=== PATIENT | female | born 1965 | race Caucasian/White ===

== ENCOUNTER 2016-11-17 13:30 | Emergency (ER) | payer OTHER ==
[~2016-11-17] VITALS: Ht 167.6 cm; Wt 56.8 kg
[2016-11-17 13:34] VITALS: BP 114/81; PULSE 101; RESP 20; O2SAT 97
[2016-11-17 14:04] LABS: BASOPHILS % (AUTO) 0.2 % (0-3); EOSINOPHILS % (AUTO) 2.2 % (0-5); MONOCYTES % (AUTO) 9.4 % (4-12); Mean Corpuscular Volume 83.5 fL (81-100); NEUTROPHILS % (AUTO) 76.3 % (40-74); Platelet Count 295 bil/L (150-400)
--- NOTE | 2016-11-17 14:19 | DRSVH ---
PROCEDURE: X-RAY CHEST, TWO VIEWS ([id number]) INDICATIONS: Fever, right-sided chest pain, and shortness of breath. TECHNIQUE: 2 views of the chest were acquired. COMPARISON: [facility], , CHEST 2VW, 11/02/2009, 14:11. FINDINGS: Surgical changes and devices: None. Lungs and pleura: No pleural effusions or pneumothorax. There are patchy bilateral indistinct groun d glass opacities, right greater than left. Mediastinum: Mediastinal contours are normal. Heart size is normal. Bones and chest wall: No suspicious bony abnormalities. Soft tissues appear unremarkable. IMPRESSION: 1. Patchy bilateral groundglass opacities suggestive of an atypical infection given clinical history . Recommend short-term followup to demonstrate resolution or further evaluation with CT. Dictated by: Grabiel Fonseca M.D. on 11/17/2016 at 14:16 Approved by: Grabiel Fonseca M.D. on 11/17/2016 at 14:17
--- NOTE | 2016-11-17 14:28 | ED.REPORT ---
HPI-URI / Cough / Cold Date of Service Nov 17, 2016 ED Provider: Alonso Shields PA-C Rona is a 51-year-old female presented with a chief complaint of fever. She reports a four-day history of fever as high as 103. Patient reports that "my normal temperature is 97.6 degrees so I add a degree when I take my temperature. Complains of cough, pain in her chest, as reduced exercise tolerance, fatigue, 5-10 # weight loss over the last 4 days. Reports that over the last 6 months been treated several times for bronchitis, pneumonia at other facilities. She does not believe that it is gone. She says she feels sometimes better for a few days and then the symptoms returned. Patient presents a log of temperature readings as well as food items consumed, medications taken. Review of hospital records indicates she was given a Z-Dean 10/05/2016 and previous to that a 10 day course of Bactrim DS and levofloxacin 750 mg starting 07/22/2016 Nursing Notes Stated Complaint: FEVER OF 100-1003 FOR 4 DAYS,CHEST PAIN Chief Complaint: General Complaint Nursing Notes Reviewed: Yes Allergies: Coded Allergies: Neomycin (Verified Allergy, 03/02/13) codeine (Verified Allergy, 03/02/13) Uncoded Allergies: PCN (Allergy, 03/02/13) General Time Seen by MD: 13:53 Chief Complaint Cough, productive... (Yellow) Past Medical History Past Medical History COPD Review of Systems General: Admits fever, chills, malaise. HEENT: Admits congestion, headache, sore throat. Respiratory: Admits dyspnea, cough, shortness of breath, wheezing. Cardiovascular: Denies chest pain, palpitations. Gastrointestinal: Denies vomiting, diarrhea, abdominal pain. Genitourinary: Denies frequency, urgency, dysuria, hematuria. Otherwise as noted in HPI. Physical Exam General: Well appearing, well developed, well nourished, no acute distress. Head: Atraumatic, normocephalic. Eyes: No scleral icterus or injection. No discharge. Vision grossly intact. ENT: Voice clear, hearing grossly intact. Respiratory: Clinically evident cough. Regular rate and rhythm. Breath sounds present and equal bilaterally. Mild wheezes in all avery. No respiratory distress. No increased work of breathing, speaks in complete sentences. Cardiovascular: Regular rate and rhythm, without murmur, gallop or rub. No pedal edema. Gastrointestinal: Abdomen flat and non-tender without guarding or rebound. Bowel sounds normoactive. Skin: Warm and dry. Neurological: Grossly nonfocal. Psychological: Alert and oriented. Speech appropriate, linear and logical. Behavior appropriate. Appears moderately anxious. Initial Vital Signs Vital Signs (First) Date Time Temp Pulse Resp B/P Pulse Ox O2 Delivery O2 Flow Rate FiO2 11/17/16 13:34 36.6 101 20 114/81 97 Room Air Mild tachycardia Interpretation & Diagnostics Interpretation & Diagnostics: PROCEDURE: CT ANGIO CHEST PULMONARY EMBOLISM ([id number]) INDICATIONS: 51 year-old female with lung abnormalities on recent chest radiograph. IMPRESSION: 1. No evidence for acute pulmonary embolism. 2. Evolving bilateral bronchopneumonia, on a background of centrilobular emphysema. Lab Results Interpretation Result Diagram: 11/17/16 1355 11/17/16 1355 Test 11/17/16 13:55 White Blood Count 13.9th/mm3 (3.8-10.1) Red Blood Count 4.85mil/mm3 (3.90-5.20) Hemoglobin 13.1g/dL (12.0-15.6) Hematocrit 40.5% (35.0-46.0) Mean Corpuscular Volume 83.5fL (81-100) Mean Corpuscular Hemoglobin 27.0pg (27.0-35.0) Mean Corpuscular Hemoglobin Concent 32.3% (32.0-37.0) Red Cell Distribution Width 12.1% (12.3-15.4) Platelet Count 295bil/L (150-400) Neutrophils (%) (Auto) 76.3% (40-74) Lymphocytes (%) (Auto) 11.5% (14-46) Monocytes (%) (Auto) 9.4% (4-12) Eosinophils (%) (Auto) 2.2% (0-5) Basophils (%) (Auto) 0.2% (0-3) Sodium Level 138mEq/L (134-144) Potassium Level 3.8mEq/L (3.5-5.2) Chloride Level 97mEq/L (97-108) Carbon Dioxide Level 24mmol/L (18-29) Blood Urea Nitrogen 9mg/dL (6-24) Creatinine 0.70mg/dL (0.57-1.00) Estimat Glomerular Filtration Rate 127mL/min (>59) Glucose Level 107mg/dL (60-99) Calcium Level 9.7mg/dL (8.5-10.1) Total Bilirubin 0.4mg/dL (0.0-1.2) Aspartate Amino Transf (AST/SGOT) 20U/L (0-50) Alanine Aminotransferase (ALT/SGPT) 24U/L (0-32) Alkaline Phosphatase 145U/L (25-150) C-Reactive Protein 14.0mg/dL (0.0-0.5) Total Protein 7.3g/dL (6.4-8.4) Albumin 3.9g/dL (3.4-5.0) Hold Castaneda Top Tube Received (Received) X-Ray Chest Interpretation Chest Xray Interpretation: PROCEDURE: X-RAY CHEST, TWO VIEWS ([id number]) INDICATIONS: Fever, right-sided chest pain, and shortness of breath. IMPRESSION: 1. Patchy bilateral groundglass opacities suggestive of an atypical infection given clinical history. Recommend short-term followup to demonstrate resolution or further evaluation with CT. View: AP & lat Interpretation / Wet Read by: Interpret - Radiologist Re-Eval/Medical Decision Med Decision/Clinical Course A 51-year-old woman with chief complaint of fever and cough. Reports several treatments for pneumonia over the last 6 months, always returning after a week or 2. Reports fever at home, weight loss over the last 4 days. Physical examination reveals a thin woman with wheezes in all avery, clinically evident, moderately anxious. Mildly tachycardic, afebrile. CBC reveals leukocytosis at 13.9. CMP is normal. Chest x-ray suggests possible pneumonia. Discussed these findings with Dr. Roberts, who consulted with radiology. Advised CT chest angiogram to further assess the parenchyma and rule out PE. CT is suggestive of bilateral bronchopneumonia on a background of central lobar emphysema. I discussed the case with Dr. Gann of infectious disease. He feels in light of her several treatments and recurring symptoms she needs to be assessed for an atypical pneumonia. He asked that she be referred to his clinic as well as pulmonology. He asks that additional blood testing be performed, which I accommodate. He does not believe that antibiotics should be prescribed at this time. I discussed this with the patient, she is disappointed to not receive treatment at this time and to have to wait to see Dr. Gann, however she consents to the plan. Provided emergency return precautions. Re-Evaluation/Progress : Re-Evaluation/Progress Note: Patient reports minimal improvement after treatment with albuterol nebulizer. Declines DuoNeb nebulizer. Re-examination reveals continuing mild wheezes in all avery. Consultation : Referral / Consult Name: Froylan Gann MD Call Returned at: 17:08 Note: Consulted with Froylan Gann, infectious disease. He recommends that she be seen in his clinic as well as pulmonary clinic. Request labs redrawn for cryptococcal antigen, Aspergillus antibody, CRP, and galacto shravan. He does not feel that it is appropriate to put her on more antibiotics at this time. Discharge & Departure Impression: Primary Impression: Pneumonia Pneumonia type: due to unspecified organism Laterality: unspecified laterality Lung location: unspecified part of lung Qualified Code: J18.9 - Pneumonia, unspecified organism Disposition: Home Discharge Condition All VS Reviewed: Yes Condition: Stable Additional Instructions: Evaluation in the emergency department for cough and fever includes history, physical examination, blood work, chest x-ray and CT scan of which suggest that this is because of a pneumonia. Because you have undergone several courses of treatment already, this is most likely atypical. I discussed the case with Dr. Gann, our infectious disease specialist. Do not feel we should put her on more antibiotics at this time rather he would prefer to see you in clinic to try to determine what is causing this. I have ordered some blood tests at his request. The results will be available to him at your appointment. He also requested that you be seen at the pulmonology clinic. I have provided you with a referral to each of these clinics. Please contact them tomorrow to arrange follow-up as soon as possible. Return to emergency department for any new or worsening symptoms including increasing shortness of breath. Referrals: Jayjay Magdaleno MD, Mark MD EDSupervising Provider for APC: Brooks Roberts MD Attending Statement I discussed this patient in detail with Mr. Shields. I interviewed the patient myself and examined her carefully myself. I have reviewed all of the laboratory data. I discussed the case in detail with radiology and we decided to go ahead with imaging CT imaging of the chest. Mr. Shields talked to Dr. Gann in detail and have established a plan that seems safe and appropriate to me. I agree with Mr. Shields's assessment plan and documentation otherwise. copies to: Jayjay Magdaleno MD; Froylan Gann MD, Seth PA-C Nov 17, 2016 14:28 Brooks Roberts MD Nov 17, 2016 17:41
[2016-11-17 14:44] VITALS: BP 126/69; PULSE 69; RESP 18; O2SAT 95
--- NOTE | 2016-11-17 16:04 | DRSVH ---
PROCEDURE: CT ANGIO CHEST PULMONARY EMBOLISM ([id number]) INDICATIONS: 51 year-old female with lung abnormalities on recent chest radiograph. TECHNIQUE: After the administration of intravenous contrast, 2 mm thick sections acquired from the pulmonary api zulma to the posterior costophrenic angles. 3-dimensional maximum intensity projection (MIP) coronal a nd sagittal reformats were then acquired through the thorax. For radiation dose reduction, the follo wing was used: automated exposure control, adjustment of mA and/or kV according to patient size. COMPARISON: [facility], [facility], XR CHEST 2VW, 11/17/2016, 13:58. FINDINGS: Image quality: Excellent. Pulmonary arteries: Pulmonary arteries are normal in size, and demonstrate no intraluminal filling d efects to suggest central pulmonary embolism. Lungs and pleura: There is background centrilobular emphysema. Scattered centrilobular nodular opaci ties are present in a 'tree in bud' distribution, involving the right upper lobe and lingula, as well as both lower lobes. More confluent opacities are present at both lung bases. No pleural effusions o r pneumothorax. Central and peripheral airways are patent. Mediastinum: Heart size is normal, without pericardial effusion. No mediastinal or hilar adenopathy . Thoracic aorta is normal in caliber and enhancement. Esophagus is normal in caliber, without hiat al hernia. Bones and chest wall: No suspicious bony lesions. Ribs and thoracic spine appear intact throughout. Thyroid gland is normal in size. No axillary or supraclavicular adenopathy. Abdomen: Visualized upper abdominal solid organs appear normal in the early arterial phase of enhanc ement. IMPRESSION: 1. No evidence for acute pulmonary embolism. 2. Evolving bilateral bronchopneumonia, on a background of centrilobular emphysema. Dictated by: Jas Shaw M.D. on 11/17/2016 at 14:56 Approved by: Jas Shaw M.D. on 11/17/2016 at 15:03
[2016-11-17] MEDS ORDERED: Albuterol-Ipratropium 3 mL Inhalation Solution NEB ONE (16:05)
[2016-11-17] MEDS ORDERED: Albuterol 2.5 mg/3 mL Inhalation Solution NEB ONE (16:05)
[2016-11-17 17:40] VITALS: BP 124/89; PULSE 101; RESP 17; O2SAT 95
== END 2016-11-17 17:35 | disposition home or self-care (01) ==
LOC: SED 13:30
DX: J18.9 Pneumonia, unspecified organism (principal); Z88.0 Allergy status to penicillin; Z88.1 Allergy status to other antibiotic agents; Z88.5 Allergy status to narcotic agent
CPT/HCPCS: 36415; 71020; 71275; 80053; 85025; 86140; 99284; J7613; J7620; Q9967